=== PATIENT | male | born 1980 | race Hispanic/Latino ===

== ENCOUNTER 2021-04-05 16:33 | Emergency (ER) | payer SELFPAY ==
[~2021-04-05] VITALS: Ht 167.6 cm; Wt 72.7 kg
[~2021-04-05 16:33] MED LIST: AMOXICILLIN500 MG PO
[2021-04-05 20:17] LABS: HEMATOCRIT 47.2 % (39.0-50.0); IMMATURE GRANULOCYTES 0.2 % (0.0-5.0); MEAN CELL VOLUME 92.7 fL CALC (80.0-100.0); MEAN CORPUSCULAR HGB 31.4 pG CALC (26.0-32.0); MEAN CORPUSCULAR HGB CONC 33.9 g/dL CAL (32.0-36.0); NEUT# 4.17 thou/uL (1.82-7.42); RED BLOOD COUNT 5.09 mill/uL (4.70-6.10); RED CELL DISTRI WIDTH 11.5 % (11.5-15.5)
[2021-04-05 20:31] LABS: ALBUMIN 4.7 g/dL (3.2-5.0); ALKALINE PHOSPHATASE 84 u/l (38-126); ANION GAP 15 (6-22 (CALC)); BILIRUBIN, TOTAL 0.6 mg/dL (0.0-1.4); BUN 10 mg/dL (9-20); BUN/CREATININE RATIO 11 (12-20 (CALC)); CARBON DIOXIDE 25 mmol/l (22-30); CHLORIDE 102 mmol/l (95-108); CREATININE 0.9 mg/dL (0.7-1.3); GFR > 60 ML/MIN (>=60 (CALC)); GFR FOR AFR.AMER. > 60 ML/MIN (>=60 (CALC)); SGOT/AST 40 u/l (17-59); SODIUM 138 mmol/l (137-146)
[2021-04-05 21:22] VITALS: BP 133/88
== END 2021-04-05 21:18 | disposition home or self-care (01) | DRG 305 ==
LOC: ED 16:33
PROVIDERS: Emergency Medicine
DX: I10 Essential (primary) hypertension (principal); E78.5 Hyperlipidemia, unspecified

== ENCOUNTER 2021-09-15 18:40 | Emergency (ER) | payer OTHER ==
[~2021-09-15] VITALS: Ht 167.6 cm; Wt 72.7 kg
[2021-09-15] MEDS ORDERED: ROSUVASTATIN CA10 MG PO (19:11)
[2021-09-15] MEDS ORDERED: PERCOCET 10/31 COMBO PO (19:34)
[2021-09-15] MEDS ORDERED: KEFLEX500 MG PO (19:34)
[2021-09-15 20:20] VITALS: BP 139/83
== END 2021-09-15 20:20 | disposition home or self-care (01) | DRG 563 ==
LOC: ED 18:40
PROC: 3E0T3BZ Introduction of Anesthetic Agent into Peripheral Nerves and Plexi, Percutaneous Approach (ICD-10-PCS; principal; 2021-09-15)
DX: S62.634B Displaced fracture of distal phalanx of right ring finger, initial encounter for open fracture (principal); I10 Essential (primary) hypertension; E78.5 Hyperlipidemia, unspecified; W26.8XXA Contact with other sharp object(s), not elsewhere classified, initial encounter; Y93.H9 Activity, other involving exterior property and land maintenance, building and construction; Y92.007 Garden or yard of unspecified non-institutional (private) residence as the place of occurrence of the external cause